=== PATIENT | female | born 1960 ===

== ENCOUNTER 2018-03-26 18:23 | Emergency (ER) | payer SELFPAY ==
[2018-03-26 18:34] VITALS: BP 146/90; PULSE 82; RESP 16; TEMP 98; O2SAT 98
--- NOTE | 2018-03-26 19:05 | ED PDOC ---
HPI: CCC, URI, Sore Throat Time Seen by Provider: 03/26/18 19:02 Chief Complaint (Nursing): ENT Problem Chief Complaint (Provider): ENT Problem History Per: Patient History/Exam Limitations: no limitations Onset/Duration Of Symptoms: Days (x3) Current Symptoms Are (Timing): Still Present Location Of Pain: Ear(s), Throat Associated Symptoms: Fever, Sore Throat, Cough, Sputum Additional Complaint(s): 57 y/o female presents to the ED for valuation of throat pain, onset three days ago. Patient reports throat pain is associated with ear pain, cold feet and a productive cough. Patient states cough is productive of phlegm in the morning. Patient is unsure if she has had a fever. Patient states ear pain began in the right ear two days ago and developed left ear pain today. Otherwise, patient offers no other complaints. History obtained through [employer], #[id number]. PMD: none provided Past Medical History Reviewed: Historical Data, Nursing Documentation, Vital Signs Vital Signs: Last Vital Signs Temp 98 F 03/26/18 18:33 Pulse 82 03/26/18 18:33 Resp 16 03/26/18 18:33 BP 146/90 03/26/18 18:33 Pulse Ox 98 03/26/18 18:33 - Medical History PMH: No Chronic Diseases - Surgical History Surgical History: No Surg Hx - Family History Family History: States: Unknown Family Hx - Allergies Allergies/Adverse Reactions: Allergies Allergy/AdvReac Type Severity Reaction Status Date / Time No Known Allergies Allergy Verified 03/26/18 18:31 Review of Systems ROS Statement: Except As Marked, All Systems Reviewed And Found Negative Constitutional: Positive for: Fever (unsure), Other (cold feet) ENT: Positive for: Ear Pain, Throat Pain Respiratory: Positive for: Cough Physical Exam - Reviewed Nursing Documentation Reviewed: Yes Vital Signs Reviewed: Yes - Physical Exam Appears: Positive for: No Acute Distress Head Exam: Positive for: ATRAUMATIC Skin: Positive for: Normal Color, Warm, Dry Eye Exam: Positive for: Normal appearance ENT: Positive for: TM Is/Are (Left and Right Ear: Non-injected, TMs intact, Light Reflection intact, all landmarks visible. ), Pharyngeal Erythema (mild bilateral erythema), Other (Exudate on the right oral phaynx). Negative for: Tonsillar Swelling Neck: Positive for: Normal, Painless ROM Cardiovascular/Chest: Positive for: Regular Rate, Rhythm. Negative for: Murmur Respiratory: Positive for: Normal Breath Sounds. Negative for: Respiratory Distress Extremity: Positive for: Normal ROM Neurologic/Psych: Positive for: Alert, Oriented. Negative for: Motor/Sensory Deficits - ECG O2 Sat by Pulse Oximetry: 98 (RA) Pulse Ox Interpretation: Normal Medical Decision Making Medical Decision Making: Time: 1905 Plan: -- Influenza A B -- Rapid Strep Group A Antigen Time: 2029 -- Patient is Strep A positive Pt is stable for discharge Scribe Attestation: Documented by Jorge Luis Espinoza, acting as a scribe Nalini Pacheco PA-C. Provider Scribe Attestation: All medical record entries made by the Scribe were at my direction and personally dictated by me. I have reviewed the chart and agree that the record accurately reflects my personal performance of the history, physical exam, medical decision making, and the department course for this patient. I have also personally directed, reviewed, and agree with the discharge instructions and disposition. Disposition - Clinical Impression Clinical Impression: Strep pharyngitis - Patient ED Disposition Is Patient to be Admitted: No Doctor Will See Patient In The: Office Counseled Patient/Family Regarding: Studies Performed, Diagnosis, Need For Followup, Rx Given - Disposition [facility]errals: [facility] Disposition: Routine/Home Disposition Time: 20:32 Condition: STABLE Instructions: Sore Throat, Adult (DC), Strep Throat (DC) Forms: [employer] (Swedish), [employer] (Luxembourgish) Print Language: MONGOLIAN
== END 2018-03-26 20:45 | disposition home or self-care (01) ==
LOC: H.ER 18:23
DX: J02.0 Streptococcal pharyngitis (principal)

== ENCOUNTER 2018-05-26 06:31 | Day surgery (SDC) | payer SELFPAY ==
--- NOTE | 2018-05-26 07:18 | CP.SDSHP ---
Same Day Surgery H & P - History Proposed Procedure: Lapaoscopic Cholecystectomy Pre-Op Diagnosis: Biliary colic - Previous Medical/Surgical History Cardiac: Hypertension Pain: 0. No Pain - Allergies Allergies: Allergies sulfamethoxazole Allergy (Verified 03/27/18 09:54) RASH trimethoprim Allergy (Verified 03/27/18 09:54) RASH - Physical Exam General Appearance: NAD Mental Status: Alert & Oriented x3 Neuro: WNL Heart: WNL Lungs: WNL GI: WNL - {Optional Preform as Required} Abdomen: WNL - Impression Impression: 58 F who presents for Laparscopic cholecystectomy Pt. Evaluated Today:Candidate for Anesthesia & Procedure: Yes - Date & Time Date: 05/26/18 Time: 07:18 Short Stay Discharge - Short Stay Discharge Admitting Diagnosis/Reason for Visit: LAPAROSCOPIC CHOLECYSTECTOMY ABD PAIN Disposition: HOME/ ROUTINE Referrals: Arnaldo Saldana MD [Staff Provider] - Follow-up: Follow up in [address] Saldana Instructions: Cholecystectomy (DC) Additional Instructions (Diet, Activity): No heavy lifting for 4 weeks May shower Keep area clean and dry No diet restrictions Follow up with Dr. Saldana in [address] Saldana's office for any issues Progress Note/Discharge Note with Instructions: 58 F with PMH of HTN s/p laparoscopic cholecystectomy Patient stable for discharge when SDS criteria met
[2018-05-26] MEDS ORDERED: Propofol 10 mg/ml Inj (20 ML) ONE (07:44)
[2018-05-26] MEDS ORDERED: Lidocaine 4% (Laryng-O-Jet) Kit MM ONE (07:45)
[2018-05-26] MEDS ORDERED: Midazolam 2 MG/2 ML VIAL ONE (07:45)
[2018-05-26] MEDS ORDERED: ePHEDrine 50 mg/ml Inj ONE (07:45)
[2018-05-26] MEDS ORDERED: Lactated Ringer's 1,000 ML IV ONE (07:45)
[2018-05-26] MEDS ORDERED: Rocuronium 10 mg/ml (5 ml) ONE (07:45)
[2018-05-26] MEDS ORDERED: Succinylcholine Chloride 20 mg/ml Syr (5 ml) IV ONE (08:18)
[2018-05-26] MEDS ORDERED: Dexamethasone 4 mg/1 ml ONE (08:45)
[2018-05-26] MEDS ORDERED: Neostigmine 1:1000 (1 mg/ml) Inj ONE (09:13)
[2018-05-26] MEDS ORDERED: Oxycodone/Acetaminophen 5/325 mg Tab PO PRN (10:01)
[2018-05-26] MEDS ORDERED: HYDROmorphone 0.5 mg/0.5 ml ISec IVP PRN ×2 (10:01→14:12)
--- NOTE | 2018-05-26 10:01 | PCM.SURG1 ---
Surgeon's Initial Post Op Note - Surgeon's Notes Surgeon: Dr. Saldana Flight [employer] Specialist: Vilma PGY2 Type of Anesthesia: General Endo Anesthesia Administered By: Dr. Pardo Pre-Operative Diagnosis: bilary colic, Cholelithiasis Operative Findings: Cholelithiasis Post-Operative Diagnosis: bilary colic, Cholelithiasis Operation Performed: Laparoscopic CHolecystectomy Specimen/Specimens Removed: gallbladder Estimated Blood Loss: EBL {In ML}: 10 Blood Products Given: N/A Drains Used: No Drains Post-Op Condition: Good Date of Surgery/Procedure: 05/26/18 Time of Surgery/Procedure: 10:00
--- NOTE | 2018-05-26 10:02 | PCM.OP ---
Operative Report - Operative Report Date of Surgery/Procedure: 05/26/18 Time of Surgery/Procedure: 10:02 Surgeon: Dr. Saldana Supervisor [employer]: Vilma [id number] Anesthesia/Sedation: General endo Dr. Pardo Pre-Operative Diagnosis: biliary colic Post-Operative Diagnosis: biliary colic, cholelithiasis Indication for Surgery: biliary colic Operative Findings: chronic inflammation, cholelithiasis Procedure/Operation Description: 56F with cholelithiasis and biliary colic who Presents for Laparoscopic Cholecystectomy. Consent was obtained before the procedure. Risks/benefits were discussed at length with the patient. The patient verbalized understanding and agreement. Patient was taken to the operating room and placed in the supine position. SCDs Were applied to bilateral lower extremities. General endotracheal anesthesia was administered. The patients abdomen was prepped and draped in the usual sterile fashion. Timeout was performed. #11 blade was used to make infraumbilical incision. Verses needle puncture was performed at this incision. The abdomen was insufflated to the optimal 15 mmhg with CO2. 12 mm laparoscopic trocar was inserted through the infraumbilical incision. Under direct visualization, a second 12 mm was placed subxiphoid then two additional 5 mm port were beneath t he right costal margin (one medial and one lateral). The gallbladder was visualized. It appeared chronically inflamed with mild distention. There was no presence of acute inflammation. The gallbladder fundus was grasp in elevated towards the right shoulder. The infundibulum was cleared of overlying fatty tissue invitations then grasp and retracted laterally. The cystic duct was identified and they selected bluntly. The cystic duct was cleared towards the junction of the CBD as well as near its injury to the gallbladder. The cystic artery was then identify and partly bisected. The critical review of safety was achieved. Three Clips were placed on the cystic duct and then it was divided with Endo [place]. The cystic artery was also clipped in the same fashion then was divided as well. The gallbladder was dissected three of the liver bed using electrocautery. Deliver bed was inspected for hemostasis before the dissection was completed. The gallbladder was completely removed from the liver bed and placed in a specimen retrieval bag before being removed from the infraumbilical port site. The right upper quadrant was irrigated and section. There was no evidence of bile or bleeding. The new were paid to me and was released and all the truckers were removed. The umbilical port site was then closed at the fasciae layer with a figure of eight using 0 Vicryl on UR6 needle. All incisions were closed with subcuticular 4-0 Monocryl sutures. [place] florentino was applied as dressing. All nursing counts were correct and confirmed. Patient tolerated the procedure well with no pain complications. The patient was transferred to the PACU for recovery. Estimated blood loss was 10 mL. Patient stable for discharge when SDS criteria is met. Estimated Blood Loss: 10 mL Complications: None Discharge & Condition: Stable, discharge when SDS criteria met
[2018-05-26] MEDS ORDERED: Lactated Ringer's 1,000 ML IV SCH (10:15)
[2018-05-26] MEDS ORDERED: HYDROmorphone 0.5 mg/0.5 ml ISec IVP ONE (14:39)
[2018-05-26 15:29] VITALS: RESP 18
[2018-05-26 16:26] VITALS: TEMP 97.6
[2018-05-26 17:24] VITALS: BP 128/82; PULSE 87; O2SAT 97
== END 2018-05-26 18:05 | disposition home or self-care (01) ==
LOC: H.OPSURG 06:31 → MERGE 08:00 → H.OPSURG 18:05
PROVIDERS: ATTEND Specialist
DX: K80.20 Calculus of gallbladder without cholecystitis without obstruction (principal); K80.50 Calculus of bile duct without cholangitis or cholecystitis without obstruction; K80.64 Calculus of gallbladder and bile duct with chronic cholecystitis without obstruction; E21.3 Hyperparathyroidism, unspecified; I10 Essential (primary) hypertension; Z90.49 Acquired absence of other specified parts of digestive tract; E78.5 Hyperlipidemia, unspecified
CPT/HCPCS: 47562; 88304; J0690; J1100; J1170; J2001; J2250; J2405; J2704; J2710; J3010; J7120